=== PATIENT | male | born 1955 | race Caucasian/White ===

== ENCOUNTER → 2017-08-04 | Outpatient (CLI) | payer MEDICARE, OTHER ==
[~2017-08-04] MED LIST: ALBUAER3 INH; ASPI-146 PO; CYCL1PAK PO; CYMB30CA PO; CYMB60CA PO; ENOX40IN SQ; FLUT1INH INH; HYDR-3580 PO; HYDR-3583 PO; IPRA0.02 NEB; LISI-515 PO; MELA5 PO; MULTTAB4 PO; TAMS5CAP PO; TRAZ50TA12 PO; ULTR50TA PO; ZOFR4TAB3 PO
[2017-08-04 10:29] LABS: AUTOMATED NEUTROPHIL # 4.4 TH/MM3 (1.8-7.7); BASOPHIL % 0.2 % (0.0-2.0); EOSINOPHIL # 0.1 TH/MM3 (0-0.4); EOSINOPHIL % 2.1 % (0.0-4.0); HEMATOCRIT 43.5 % (39.0-51.0); HEMO FLAGS DIFF FINAL; LYMPH % 15.3 % (9.0-44.0); LYMPHOCYTE # 0.9 TH/MM3 (1.0-4.8); MEAN CELL VOLUME 92.1 FL (80.0-100.0); MEAN CORPUSCULAR HEMOGLOBIN 31.4 PG (27.0-34.0); MEAN CORPUSCULAR HGB CONC 34.1 % (32.0-36.0); MONO % 6.5 % (0.0-8.0); NEUT % 75.9 % (16.0-70.0); PLATELET COUNT 198 TH/MM3 (150-450); RED BLOOD COUNT 4.73 MIL/MM3 (4.50-5.90); RED CELL DISTRIBUTION WIDTH 12.3 % (11.6-17.2); WHITE BLOOD COUNT 5.8 TH/MM3 (4.0-11.0)
[2017-08-04 10:36] LABS: APTT (PATIENT) 33.1 SEC (24.3-30.1); PROTHROMBIN TIME - PATIENT 11.3 SEC (9.8-11.6)
[2017-08-04 10:51] LABS: ALT (GPT) 24 U/L (12-78); ANION GAP 6 MEQ/L (5-15); AST (GOT) 12 U/L (15-37); BICARBONATE 29.9 MEQ/L (21.0-32.0); BLOOD UREA NITROGEN 14 MG/DL (7-18); CHLORIDE 101 MEQ/L (98-107); GLOMERULAR FILTRATION RATE 77 ML/MIN (>89); GLUCOSE,FASTING 96 MG/DL (74-99); POTASSIUM 4.2 MEQ/L (3.5-5.1); SODIUM (NA) 137 MEQ/L (136-145)
[2017-08-04 10:53] LABS: BLOOD, URINE NEG (NEG); COMMENT (UR) CULT NOT INDICATED; CULTURE IF INDICATED CULT NOT INDICATED; GLUCOSE,URINE NEG (NEG); KETONE, URINE NEG (NEG); NITRITE,URINE NEG (NEG); URINE COLOR YELLOW (YELLW/STRAW)
[2017-08-04 10:53] LABS: ALKALINE PHOSPHATASE 37 U/L (45-117); TOTAL BILIRUBIN ADULT 0.5 MG/DL (0.2-1.0)
[2017-08-04 11:00] LABS: WESTERGREN SEDIMENTATION RATE 3 mm/hr (0-20)
--- NOTE | 2017-08-04 11:36 | RADRPT ---
EXAM DATE/TIME: 08/04/2017 11:25 [facility] COMPARISON: No previous studies available for comparison. INDICATIONS : Evaluate for pneumonia, pneumothorax or communicable disease. Pre op for right hip surgery 08-20-17 MEDICAL HISTORY : Chronic obstructive pulmonary disease. SURGICAL HISTORY : None. ENCOUNTER: Initial ACUITY: 1 day PAIN SCORE: 0/10 LOCATION: Bilateral chest FINDINGS: PA and lateral views of the chest demonstrate the lungs to be symmetrically aerated without evidence of mass, infiltrate or effusion. The lungs are hyperinflated. The cardiomediastinal contours are unr emarkable. Osseous structures are intact. CONCLUSION: Hyperinflation suggesting COPD. No acute infiltrate or effusion. Martín Mitchell Jr., MD on August 04, 2017 at 11:33 Board Certified Radiologist. This report was verified electronically.
== END ==
LOC: CPRE 09:02
PROVIDERS: ATTEND Orthopaedic Surgery
DX: Z01.812 Encounter for preprocedural laboratory examination (principal); Z01.811 Encounter for preprocedural respiratory examination; J44.9 Chronic obstructive pulmonary disease, unspecified; M16.11 Unilateral primary osteoarthritis, right hip; M25.50 Pain in unspecified joint
CPT/HCPCS: 36415; 71020; 80053; 81001; 85025; 85610; 85652; 85730

== ENCOUNTER 2017-08-20 07:17 | Inpatient (IN) | payer MEDICARE, OTHER ==
[~2017-08-20] VITALS: Ht 177.8 cm; Wt 70.6 kg
[~2017-08-20 07:17] MED LIST changes: -ASPI-146 PO; -CYCL1PAK PO; -CYMB30CA PO; -ENOX40IN SQ; -HYDR-3583 PO; -ULTR50TA PO; -ZOFR4TAB3 PO
[2017-08-20] MEDS ORDERED: DEXAMETHASONE SOD PHOS 20 MG/5 ML VIAL IV SCH (08:00)
[2017-08-20] MEDS ORDERED: ceFAZolin 2 GM PREMIX 50 ML IV SCH (08:00)
[2017-08-20] MEDS ORDERED: VANCOMYCIN 1000 MG/NS 250 ML (for <70 kg) IV SCH ×2 (08:00)
[2017-08-20] MEDS ORDERED: CHLORHEXIDINE GLUCONATE 2 % 1 PACK (2 CLOTHS) TOPICAL PRN (08:00)
[2017-08-20] MEDS ORDERED: LACTATED RINGER'S 1000 ML IV PRN (08:00)
[2017-08-20] MEDS ORDERED: POVIDONE IODINE 7.5% SCRUB 118 ML BOTTLE TOPICAL SCH (08:00)
[2017-08-20] MEDS ORDERED: SODIUM CHLORID 0.9% 500 ML IV PRN (08:00)
[2017-08-20] MEDS ORDERED: POVIDONE IODINE 5% (ANTISEPSIS KIT) 4 APPLICATIONS EACH NARE PRN (08:00)
[2017-08-20] MEDS ORDERED: METOPROLOL TARTRATE 25 MG TAB PO PRN (08:00)
[2017-08-20] MEDS ORDERED: GENTAMICIN SULFATE 80 MG/2 ML VIAL ONE (08:31)
[2017-08-20] MEDS ORDERED: EXPAREL PERI-ARTICULAR INJECTION (TOTAL VOL. 60 ML) P-ARTICULR SCH ×2 (09:00)
[2017-08-20] MEDS ORDERED: SODIUM CHLORIDE 0.9% IV SCH ×2 (09:00→14:00)
[2017-08-20] MEDS ORDERED: TRANEXAMIC ACID IV SCH ×2 (09:00→14:00)
--- NOTE | 2017-08-20 12:04 | RADRPT ---
EXAM DATE/TIME: 08/20/2017 10:43 [facility] COMPARISON: No previous studies available for comparison. INDICATIONS : Right anterior hip replacement done in operating room. MEDICAL HISTORY : None. SURGICAL HISTORY : None. ENCOUNTER: Initial ACUITY: 1 day PAIN SCORE: Non-responsive. LOCATION: Right hip. FINDINGS: The patient is status post a total hip arthroplasty with a bipolar prosthesis. Prosthesis is well-sea sneha. Alignment is anatomic. A fracture is not appreciated. CONCLUSION: Anatomic alignment. Hari Hernandez MD FACR Board Certified Radiologist. This report was verified electronically.
--- NOTE | 2017-08-20 12:13 | PD.OP ---
cc: Armani Carrillo MD Operative Report Date of Surgery: Aug 20, 2017 Preoperative Diagnosis: Right hip avascular necrosis, with large labral tear. Postoperative Diagnosis: Same Procedure: Right total hip arthroplasty Anesthesia: Spinal Surgeon: Armani Carrillo Regional Production Manager(s): DINORA Crooks The surgical procedure was assisted by my Advanced Registered Nurse Practitioner. My PATIENT RELATIONS DIRECTOR presence was necessary throughout this case for the manipulation and positioning of the surgical extremity. My PATIENT RELATIONS DIRECTOR was assisting me throughout the duration of this procedure. The skill set of an Advance Registered Nurse Practitioner was medically necessary to complete this procedure. During the surgical case, the surgical assistant was working at the back table and the Advance Registered Nurse Practitioner was directly assisting me. Operation and Findings: IMPLANT DESCRIPTION: 1. [place] Gription Cup, acetabular size 54. 2. [place] AltrX polyethylene, neutral. 4. [place] femoral stem size 11, no collar, standard offset. 5. Femoral head/neck ceramic, 36, +5.0. ESTIMATED BLOOD LOSS: 250 cc. JUSTIFICATION FOR PROCEDURE: The patient has avascular necrosis and a large labral tear of the right hip. There is an attached conservative measures pathway form in the chart that describes the nonoperative measures that were undertaken prior to consideration of surgical management. The patient understood the risks and benefits of surgical management. See my office notes for further details. PROCEDURE: The patient was brought back to the operative theatre. Adequate anesthesia was obtained. The patient received intravenous vancomycin and Ancef. The patient was carefully placed on the operative table. The lower extremity was prepped and draped in the usual sterile fashion. Fluoroscopic images were obtained. We made a standard anterior incision over the hip. We dissected through the TFL fascia, exposing the anterior capsule. Arthrotomy was performed in a T-shaped fashion. The capsule was tagged with a #2 FiberWire. At least moderate osteoarthritis to the hip was noted. Osteotomy was performed through the femoral neck exposing the acetabulum. Labral tear was noted. Remnants of the labrum were resected and osteophytes were removed. We sequentially reamed the acetabulum. We trialed the hip and placed the final cup into position. This was done under fluoroscopic guidance to obtain the appropriate inclination and anteversion. A manhole cover was placed into the acetabular component. We then placed the final polyethylene into position and confirmed that it was well seated. Capsular attachments on the calcar and the inner aspect of the greater trochanter were resected. On the proximal aspect of the femur we used a rongeur , box osteotome, canal finder, sequential broaches and lateralizing rasp. We calcar planed the proximal femur. Then thoroughly irrigated the wound. We trialed the hip with the appropriate size stem. We placed the final stem in to position and trialed again. The hip was stable while it was externally rotated 70 degrees when the leg was lowered to the floor. The final head was applied, and final fluoroscopic images were obtained. The wound was thoroughly irrigated again. Interarticular injection of liposomal bupivacaine was given. The capsule was closed with #2 FiberWire and #1 Vicryl. The deep fascia was closed with a #2 Stratafix, followed by 2-0 Vicryl in the skin and Dermabond dressing. Postop plan is to weight-bear as tolerated. DVT prophylaxis will be performed with SCDtammy, RAYNA briseno, early mobilization, and Lovenox followed by aspirin. Armani Carrillo MD Aug 20, 2017 12:13
[2017-08-20] MEDS ORDERED: ALBUTEROL SULFATE 90 MCG/ACT HFA 8 GM INHALER INH PRN (12:15)
[2017-08-20] MEDS ORDERED: MAGNESIUM HYDROXIDE SUSP 30 ML CUP PO PRN (12:15)
[2017-08-20] MEDS ORDERED: ACETAMINOPHEN/HYDROcodone 325 MG/10 MG TAB PO PRN (12:15)
[2017-08-20] MEDS ORDERED: HYDR-3583 PO (12:15)
[2017-08-20] MEDS ORDERED: ASPI-146 PO (12:15)
[2017-08-20] MEDS ORDERED: Post-op Orders (for Pharmacy) MISC XX ONE (12:15)
[2017-08-20] MEDS ORDERED: BISACODYL 10 MG SUPP RECTAL PRN (12:15)
[2017-08-20] MEDS ORDERED: MORPHINE SULFATE 4 MG/ML INJ IV PUSH PRN (12:15)
[2017-08-20] MEDS ORDERED: ONDANSETRON HCL 4 MG/2 ML VIAL IVP PRN (12:15)
[2017-08-20] MEDS ORDERED: diphenhydrAMINE HCL 50 MG/ML VIAL IV PUSH PRN (12:15)
[2017-08-20] MEDS ORDERED: ENOX40IN SQ (12:15)
[2017-08-20] MEDS ORDERED: NALOXONE HCL 0.4 MG/ML AMP IV PUSH PRN (12:15)
[2017-08-20] MEDS ORDERED: ALUMINUM/MAGNESIUM/SIMETH 30 ML CUP PO PRN (12:15)
[2017-08-20] MEDS ORDERED: DO NOT ADM ANY ANTICOAGULANT DRUGS PRN (12:25)
--- NOTE | 2017-08-20 13:50 | RADRPT ---
EXAM DATE/TIME: 08/20/2017 12:44 [facility] COMPARISON: No previous studies available for comparison. INDICATIONS : Post op right hip surgery MEDICAL HISTORY : None. SURGICAL HISTORY : None. ENCOUNTER: Initial ACUITY: 1 day PAIN SCORE: 10 LOCATION: Left hip and pelvis FINDINGS: Right total hip arthroplasty is present. Hardware is intact. Alignment is anatomic. The adjacent pelv is is unremarkable CONCLUSION: Satisfactory appearance post right ANJU Maxi Becerra MD on August 20, 2017 at 13:13 Board Certified Radiologist. This report was verified electronically.
[2017-08-20] MEDS: SODIUM CHLOR 0.9% 1000 ML INJ 1,000 ML IV SCH (14:00)
--- NOTE | 2017-08-20 14:16 | HHI.DCPOC ---
Discharge Care Plan Diagnosis: (1) Osteoarthritis of right hip (2) Status post total hip replacement, right Your Health Problems Are: Difficulty with ADL Goals to Promote Your Health * To prevent worsening of your condition and complications * To maintain your health at the optimal level Directions to Meet Your Goals Take your medications as prescribed Follow your dietary instruction Follow activity as directed Keep your appointments as scheduled Take your immunizations and boosters as scheduled If your symptoms worsen call your PCP, if no PCP go to Urgent Care Center or Emergency Room Smoking is Dangerous to Your Health. Avoid second hand smoke Call the 24-hour hour crisis hotline for domestic abuse at Jorge Myers Aug 20, 2017 14:16
--- NOTE | 2017-08-20 14:16 | HHI.FF ---
Face to Face Verification Diagnosis: (1) Osteoarthritis of right hip (2) Status post total hip replacement, right Physical Therapy Gait training, Transfer training, bed to chair Hip: Total hip Right LE Weight Bearing: WB as tolerated Right LE Range of Motion: Active ROM Nursing Nursing: Uma matta Dressing Changes: Do not change dressing Additional Instructions First dressing change will be in the office I have seen patient Pako Herrera Jr Gopi on 08/20/17. My clinical findings support the need for the requested home health care services because: Limited ability to care for self High risk of falls I certify that my clinical findings support that this patient is homebound because: Post-op weakness Unsteady gait/balance Jorge Myers Aug 20, 2017 14:16
[2017-08-20] MEDS ORDERED: COMMODE 3-IN-11 MIS (14:19)
[2017-08-20] MEDS ORDERED: WALKER WHEELS/F1 MIS (14:19)
[2017-08-20] MEDS: RESP: IPRATROPIUM 0.5 MG/2.5 ML NEB NEB SCH ×2 (16:00→21:20)
[2017-08-20 16:35] VITALS: BP 132/80; PULSE 63; RESP 18; TEMP 98.3; O2SAT 96
[2017-08-20] MEDS: ACETAMINOPHEN/HYDROcodone 325 MG/10 MG TAB PO PRN ×2 (17:30→22:00)
--- NOTE | 2017-08-20 19:11 | PD.CONS ---
HPI Service [facility] Hospitalists Consult Requested By Dr Carrillo Reason for Consult Medical management. Primary Care Physician Alysha Marie DO Diagnoses: History of Present Illness This is a 61-year-old male with past history of hip osteoarthritis. Hypertension, BPH, COPD, anxiety, chronic back pain who presents to [facility] for an elective total right hip arthroplasty. The patient underwent surgery earlier today. Currently denies any chest pain, shortness of breath, cough, fevers, chills, nausea, vomiting, diarrhea. I am being consulted a Dr. Carrillo for management of medical issues. Review of Systems As per history of present illness, other systems reviewed by me and negative Past Family Social History Allergies: Coded Allergies: No Known Allergies (Unverified Allergy, Unknown, 08/20/17) Past Medical History 1. Hypertension. 2. Anxiety 3. Osteoarthritis. 4. BPH 5 COPD Past Surgical History 1. Tonsillectomy. 2. Nasal septum repair 2. 3. Right shoulder reconstructive surgery. 4. Pilonidal cyst extraction. Reported Medications Reported Meds & Active Scripts Active Enoxaparin Inj (Enoxaparin Sodium) 40 Mg/0.4 Ml Syr 40 Mg SQ DAILY Start Aspirin after Lovenox is completed. Ecotrin Regular Strength (Aspirin) 325 Mg Tabdr 325 Mg PO DAILY Start Aspirin after Lovenox is completed. Hydrocodone-Acetaminophen 10-325 mg Tab 1-2 Tab PO Q4H PRN Reported Trazodone (Trazodone HCl) 50 Mg Tab 50 Mg PO HS Proair Hfa 8.5 GM Inh (Albuterol Sulfate) 90 Mcg/Act Aer 2 Puff INH Q4-6H PRN 108 mcg/actuation Ipratropium Neb (Ipratropium [place]) 0.5 Mg/2.5 Ml Amp 0.5 Mg NEB Q6HR NEB Breo Ellipta Inh (Fluticasone/Vilanterol) 100-25 Mcg/Act Inh 1 Puff INH DAILY Use daily at the same time. Flomax (Tamsulosin HCl) 0.4 Mg Cap 0.4 Mg PO HS Lisinopril 20 Mg Tab 20 Mg PO DAILY Cymbalta DR (Duloxetine HCl) 60 Mg Capdr 60 Mg PO DAILY Hydrocodone-Acetamin 7.5-325 (Hydrocodone/Acetaminophen) 7.5 Mg-325 Mg Tablet 1 Tab PO DIRECTED PRN Melatonin 5 Mg Tab 1 Mg PO HS Multi Vitamin Mens (Multiple Vitamin) 1 Tab Tab 1 Tab PO DAILY Active Ordered Medications Current Medications Medications (Trade) Dose Ordered Sig/Britni Route Start Time Stop Time Status Last Admin Lactated Ringer's 1,000 ml @ 30 mls/hr Q24H PRN IV 08/20/17 08:00 08/23/17 07:59 08/20/17 08:00 Sodium Chloride 500 ml @ 30 mls/hr [id number] PRN IV 08/20/17 08:00 08/23/17 07:59 (Lopressor) 25 mg SCHOOL [employer]GE [employer] ASSOCIATE PRN PO 08/20/17 08:00 08/23/17 07:59 (Betadine 5% Antisepsis Kit) 1 applic [employer]CHO[employer]GE [employer] ASSOCIATE PRN EACH NARE 08/20/17 08:00 08/23/17 07:59 08/20/17 08:13 (Chlorhexidine 2% Cloth) 3 pack S[employer]OL [employer]GE [employer]GRAM ASSOCIATE PRN TOPICAL 08/20/17 08:00 08/23/17 07:59 08/20/17 07:30 (Betadine 7.5% Scrub) 1 applic ONCE TOPICAL 08/20/17 08:00 08/23/17 07:59 Cefazolin Sodium/ Dextrose 50 ml @ 100 mls/hr [employer] ASSOCIATE IV 08/20/17 08:00 08/23/17 07:59 08/20/17 10:08 Vancomycin HCl 1000 mg/Sodium Chloride 250 ml @ 250 mls/hr S[employer] ASSOCIATE IV 08/20/17 08:00 08/23/17 07:59 08/20/17 10:08 (Decadron Inj) 10 mg S[employer] ASSOCIATE IV 08/20/17 08:00 08/20/17 23:59 08/20/17 08:12 (Proair Hfa Inh) 2 puff BID PRN INH 08/20/17 12:15 (Cymbalta Dr) 60 mg DAILY PO 08/21/17 09:00 (Breo Ellipta 100-25 Inh) 1 puff DAILY INH 08/21/17 09:00 (Atrovent Neb) 0.5 mg Q6HR NEB NEB 08/20/17 16:00 (Prinivil) 20 mg DAILY PO 08/21/17 09:00 (Flomax) 0.4 mg HS PO 08/20/17 21:00 (Desyrel) 50 mg HS PO 08/20/17 21:00 Sodium Chloride 1,000 ml @ 100 mls/hr Q10H IV 08/20/17 14:00 08/20/17 14:00 Cefazolin Sodium 1000 mg/Sodium Chloride 100 ml @ 200 mls/hr Q6H IV 08/20/17 16:00 08/21/17 04:29 08/20/17 16:00 (Decadron Inj) 10 mg ONCE ONCE IV 08/21/17 07:45 08/21/17 07:46 (Lovenox Inj) 40 mg Q24H SQ 08/21/17 11:30 08/30/17 11:31 ([place] 10-325 Mg) 1 tab Q4H PRN PO 08/20/17 12:15 08/20/17 17:30 ([place] 10-325 Mg) 2 tab Q6H PRN PO 08/20/17 12:15 Tranexamic Acid 676 mg/Sodium Chloride 106.76 ml @ 200 mls/ hr UNSCH IV 08/20/17 14:00 08/20/17 20:00 08/20/17 14:43 (Theragran M Tab) 1 tab BID PO 08/21/17 21:00 10/20/17 20:59 (Zofran Inj) 4 mg Q6H PRN IVP 08/20/17 12:15 (Colace) 100 mg BID PO 08/21/17 21:00 (Mag-Al Plus Susp Liq) 30 ml Q6H PRN PO 08/20/17 12:15 (Ambien) 5 mg HS PRN PO 08/20/17 21:00 (Dulcolax Supp) 10 mg DAILY PRN RECTAL 08/20/17 12:15 (Milk Of Magnesia Liq) 30 ml DAILY PRN PO 08/20/17 12:15 (Narcan Inj) 0.4 mg UNSCH PRN IV PUSH 08/20/17 12:15 (Benadryl Inj) 25 mg Q6H PRN IV PUSH 08/20/17 12:15 (Morphine Inj) 2 mg Q3H PRN IV PUSH 08/20/17 12:15 08/20/17 16:05 Miscellaneous Information ALL NURSING DEPARTME... UNSCH PRN .XX 08/20/17 12:25 08/21/17 12:24 Family History And as family history of cancer. Patient father had an CO and patient's mother suffered from problems with anxiety. Social History Patient states he currently smokes half pack per day. 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 The patient smokes marijuana occasionally. The patient has 2 children and is currently . Physical Exam Vital Signs Vital Signs Date Time Temp Pulse Resp B/P (MAP) Pulse Ox O2 Delivery O2 Flow Rate FiO2 08/20/17 16:35 98.3 63 18 132/80 (97) 96 08/20/17 12:30 98.0 69 18 99/55 (70) 99 Simple Mask 8 08/20/17 08:02 97.9 68 16 133/76 (95) 98 Physical Exam GENERAL: This is a well-nourished, well-developed patient, in no apparent distress. SKIN: No rashes, ecchymoses or lesions. Cool and dry. HEAD: Atraumatic. Normocephalic. No temporal or scalp tenderness. EYES: Pupils equal round and reactive. Extraocular motions intact. No scleral icterus. No injection or drainage. ENT: Nose without bleeding, purulent drainage or septal hematoma. Throat without erythema, tonsillar hypertrophy or exudate. Uvula midline. Airway patent. NECK: Trachea midline. No JVD or lymphadenopathy. Supple, nontender, no meningeal signs. CARDIOVASCULAR: Regular rate and rhythm without murmurs, gallops, or rubs. RESPIRATORY: Clear to auscultation. Breath sounds equal bilaterally. No wheezes , rales, or rhonchi. GASTROINTESTINAL: Abdomen soft, non-tender, nondistended. No hepato-splenomegaly , or palpable masses. No guarding. MUSCULOSKELETAL: Extremities without clubbing, cyanosis, there is mild edema and tenderness in the right hip, surgical incision is covered by dressing which is C/D/I. . No calf tenderness. Negative Homans sign bilaterally. Patient has intact bilateral pedal pulses. NEUROLOGICAL: Awake and alert. Cranial nerves II through XII intact. Motor and sensory grossly within normal limits. Five out of 5 muscle strength in all muscle groups. Normal speech. Imaging Last Impressions Hip and Pelvis X-Ray 08/20/17 1207 Signed Impressions: Service Date/Time: Sunday, August 20, 2017 12:44 - CONCLUSION: Satisfactory appearance post right ANJU Maxi Becerra MD Hip X-Ray 08/20/17 0000 Signed Impressions: Service Date/Time: Sunday, August 20, 2017 10:43 - CONCLUSION: Anatomic alignment. Hair Hernandez MD Assessment and Plan Problem List: (1) Osteoarthritis of right hip ICD Code: M16.11 - Unilateral primary osteoarthritis, right hip Plan: Management as per orthopedic surgery sp right hip total arthroplasty. Pain control as per orthopedic surgery recommendations. Patient currently on [place] and IV morphine for breakthrough pain. PT eval. The patient will need home health physical therapy as per PT recommendations. (2) Status post total hip replacement, right ICD Code: Z96.641 - Presence of right artificial hip joint Plan: As above. (3) HTN (hypertension) ICD Code: I10 - Essential (primary) hypertension Plan: Symptoms stable. Continue lisinopril 20 mg by mouth daily. (4) BPH (benign prostatic hyperplasia) ICD Code: N40.0 - Benign prostatic hyperplasia without lower urinary tract symptoms Plan: Continue Flomax. (5) Anxiety ICD Code: F41.9 - Anxiety disorder, unspecified Plan: Seems to be stable at this time. Continue trazodone, duloxetine (6) COPD (chronic obstructive pulmonary disease) ICD Code: J44.9 - Chronic obstructive pulmonary disease, unspecified Plan: Seems stable. Continue home medications which include Breo Ellipta inhaler, albuterol inhaler. Will add DuoNeb's as needed. Supplemental oxygen as needed keep oxygen saturation more than 92%. Assessment and Plan DVT prophylaxis: SCDs, Lovenox 40 mg subcutaneous every 24 hours. GI prophylaxis: Continue Zofran as needed for nausea, continue bowel regimen to prevent constipation. Code Status Full code Discussed Condition With Patient, RN. Problem Qualifiers (1) Osteoarthritis of right hip: Qualified Codes: M16.11 - Unilateral primary osteoarthritis, right hip (2) HTN (hypertension): Qualified Codes: I10 - Essential (primary) hypertension (3) BPH (benign prostatic hyperplasia): Qualified Codes: N40.0 - Benign prostatic hyperplasia without lower urinary tract symptoms (4) COPD (chronic obstructive pulmonary disease): Qualified Codes: J44.9 - Chronic obstructive pulmonary disease, unspecified Arrington Brandon,Peter MD Aug 20, 2017 19:11
[2017-08-20 20:00] VITALS: BP 127/61; PULSE 76; RESP 20; TEMP 96.1; O2SAT 97
[2017-08-20] MEDS: NICOTINE 21 MG/24 HR PATCH T-DERMAL SCH (20:00)
[2017-08-20] MEDS ORDERED: traZODone HCL 50 MG TAB PO SCH (21:00)
[2017-08-20] MEDS ORDERED: ZOLPIDEM TARTRATE 5 MG TAB PO PRN (21:00)
[2017-08-20] MEDS ORDERED: REMOVE OLD PATCH T-DERMAL SCH (21:00)
[2017-08-20] MEDS ORDERED: TAMSULOSIN HCL 0.4 MG CAP PO SCH (21:00)
[2017-08-20 21:24] VITALS: O2SAT 99
[2017-08-21] VITALS: BP 109/56; PULSE 67; RESP 16; TEMP 95.9; O2SAT 95
[2017-08-21] MEDS: RESP: IPRATROPIUM 0.5 MG/2.5 ML NEB NEB SCH ×2 (03:48→12:04)
[2017-08-21 04:00] VITALS: BP 122/56; PULSE 72; RESP 16; TEMP 96.7; O2SAT 95
[2017-08-21] MEDS: ACETAMINOPHEN/HYDROcodone 325 MG/10 MG TAB PO PRN ×3 (05:25→13:13)
[2017-08-21 06:54] LABS: HEMATOCRIT 33.5 % (39.0-51.0); MEAN CELL VOLUME 90.6 FL (80.0-100.0); MEAN CORPUSCULAR HEMOGLOBIN 31.7 PG (27.0-34.0); MEAN CORPUSCULAR HGB CONC 34.9 % (32.0-36.0); PLATELET COUNT 175 TH/MM3 (150-450); RED BLOOD COUNT 3.69 MIL/MM3 (4.50-5.90); RED CELL DISTRIBUTION WIDTH 12.1 % (11.6-17.2); REVIEW FLAG FINAL; WHITE BLOOD COUNT 10.8 TH/MM3 (4.0-11.0)
[2017-08-21 07:20] LABS: ANION GAP 8 MEQ/L (5-15); AST (GOT) 17 U/L (15-37); BICARBONATE 26.7 MEQ/L (21.0-32.0); BLOOD UREA NITROGEN 16 MG/DL (7-18); CHLORIDE 108 MEQ/L (98-107); GLOMERULAR FILTRATION RATE 84 ML/MIN (>89); POTASSIUM 3.8 MEQ/L (3.5-5.1); SODIUM (NA) 143 MEQ/L (136-145)
[2017-08-21 07:21] LABS: ALT (GPT) 17 U/L (12-78)
[2017-08-21 07:23] LABS: ALKALINE PHOSPHATASE 40 U/L (45-117); TOTAL BILIRUBIN ADULT 0.3 MG/DL (0.2-1.0)
[2017-08-21] MEDS ORDERED: DEXAMETHASONE SOD PHOS 20 MG/5 ML VIAL IV ONE (07:45)
[2017-08-21 08:00] VITALS: BP 116/69; PULSE 70; RESP 18; TEMP 97.8; O2SAT 95
[2017-08-21] MEDS ORDERED: LISINOPRIL 20 MG TAB PO SCH (09:00)
[2017-08-21] MEDS ORDERED: FLUTICASONE 100 MCG/VILANTEROL 25 MCG INHALER INH SCH (09:00)
[2017-08-21] MEDS ORDERED: DULoxetine HCl DR 60 MG CAP PO SCH (09:00)
[2017-08-21] MEDS: NICOTINE 21 MG/24 HR PATCH T-DERMAL SCH (09:00)
[2017-08-21] MEDS: SODIUM CHLOR 0.9% 1000 ML INJ 1,000 ML IV SCH ×2 (10:00)
[2017-08-21] MEDS ORDERED: ENOXAPARIN SODIUM 40 MG/0.4 ML SYRINGE SQ SCH (11:30)
[2017-08-21 12:00] VITALS: BP 141/69; PULSE 63; RESP 18; TEMP 98.1; O2SAT 95
[2017-08-21 12:08] VITALS: O2SAT 98
--- NOTE | 2017-08-21 13:01 | PD.ORT.PN ---
Subjective Post Op Day #: 1 Subjective Remarks Patient is OOB in chair eating lunch. Patient reports minimal pain. Patient states he is ready for discharge home with home health. Objective Vitals Vital Signs Date Time Temp Pulse Resp B/P (MAP) Pulse Ox O2 Delivery O2 Flow Rate FiO2 08/21/17 12:08 98 21 08/21/17 08:00 97.8 70 18 116/69 (85) 95 08/21/17 04:00 96.7 72 16 122/56 (78) 95 08/21/17 00:00 95.9 67 16 109/56 (73) 95 08/20/17 21:24 99 08/20/17 20:00 96.1 76 20 127/61 (83) 97 08/20/17 16:35 98.3 63 18 132/80 (97) 96 08/20/17 16:25 66 18 141/73 (95) 93 Room Air 08/20/17 16:00 63 18 144/74 (97) 95 Room Air 08/20/17 15:45 64 18 139/72 (94) 95 Room Air 08/20/17 15:30 60 18 138/75 (96) 94 Room Air 08/20/17 15:15 61 18 136/78 (97) 94 Room Air 08/20/17 15:00 60 18 130/77 (94) 94 Room Air 08/20/17 14:45 60 18 132/73 (92) 94 Room Air 08/20/17 14:30 57 18 121/68 (85) 93 Room Air 08/20/17 14:15 64 18 120/67 (84) 94 Room Air 08/20/17 14:00 58 18 113/62 (79) 95 Room Air 08/20/17 13:45 57 18 117/62 (80) 96 Room Air 08/20/17 13:30 58 18 114/60 (78) 96 Room Air 08/20/17 13:15 60 18 110/55 (73) 96 Nasal Cannula 2 08/20/17 13:00 60 18 121/56 (77) 95 Nasal Cannula 2 I/O 08/20/17 08/20/17 08/20/17 08/21/17 08/21/17 08/21/17 07:00 15:00 23:00 07:00 15:00 23:00 Intake Total 1200 ml 706.76 ml 25 ml Output Total 250 ml Balance 950 ml 706.76 ml 25 ml Intake Oral 600 ml 25 ml IV Total 1200 ml 106.76 ml Output Estimated Blood Loss 250 ml # Voids 2 1 # Bowel Movements 0 0 1 Result Diagram: 08/21/17 0551 08/21/17 0531 Procedures Right ANJU Objective Remarks The patient's dressing is C/D/I. EHL/TA/G intact. 2+ pedal pulse. Calf is soft and nontender. + SILT. Assessment & Plan Ortho Post Op Day #: 1 Problem List: Assessment and Plan POD #1: Right ANJU 1. WBAT RLE 2. Lovenox followed by ASA for DVT prophylaxis 3. Ice to the right hip PRN 4. Plan is for discharge home with home health today. 5. Patient will f/u with Dr. Carrillo or DINORA Bradford as previously scheduled. 6. We will continue to follow pathology report on femoral head. Jorge Myers Aug 21, 2017 13:01
[2017-08-21] MEDS ORDERED: DOCUSATE SODIUM 100 MG CAP PO SCH (21:00)
[2017-08-21] MEDS ORDERED: MULTIVITAMINS/MINERALS THERAPEUTIC TAB PO SCH (21:00)
--- NOTE | 2017-08-22 16:56 | HHI.DS ---
Discharge Summary Admission Date Aug 20, 2017 at 07:17 Discharge Date: Aug 21, 2017 Admitting Diagnosis OA of the right hip Status post total hip replacement, Right Diagnosis: (1) Status post total hip replacement, right Diagnosis: Principal ICD Codes: Z96.641 - Presence of right artificial hip joint (2) Osteoarthritis of right hip Diagnosis: Principal ICD Codes: M16.11 - Unilateral primary osteoarthritis, right hip Procedures Right ANJU Brief History This is a 61 year old male patient with severe OA of the right hip CBC/BMP: 08/21/17 0551 08/21/17 0531 Significant Findings Laboratory Tests Test 08/21/17 05:31 08/21/17 05:51 Random Glucose 133 MG/DL (74-106) Total Protein 5.7 GM/DL (6.4-8.2) Albumin 3.1 GM/DL (3.4-5.0) Calcium Level 8.0 MG/DL (8.5-10.1) Alkaline Phosphatase 40 U/L (45-117) Chloride Level 108 MEQ/L (98-107) Estimat Glomerular Filtration Rate 84 ML/MIN (>89) Red Blood Count 3.69 MIL/MM3 (4.50-5.90) Hemoglobin 11.7 GM/DL (13.0-17.0) Hematocrit 33.5 % (39.0-51.0) PE at Discharge The patient's dressing is C/D/I. EHL/TA/G intact. 2+ pedal pulse. Calf is soft and nontender. + SILT. Hospital Course The patient was admitted to the hospital for severe OA of the right hip. The patient had a right ANJU. The patient's surgery went well without complication. The patient is WBAT. The patient is on a regular diet. The patient was placed on Lovenox followed by ASA for DVT prophylaxis. The patient was discharged home with home health and will f/u in the office with Dr. Carrillo or DINORA Bradford as previously scheduled. Pt Condition on Discharge: Stable Discharge Disposition: Disch w/ Home Health Serv Discharge Instructions Diet Instructions: As Tolerated, No Restrictions Activities You Can Perform: Weight Bearing as Sofie Activities to Avoid: Strenuous Activity Follow up Referrals: Orthopedics with Armani Carrillo MD New Medications: Aspirin (Ecotrin Regular Strength) 325 Mg Tabdr 325 MG PO DAILY for Prevent Blood Clot, #30 TAB 0 Refills Start Aspirin after Lovenox is completed. Commode 3-in-1 (Commode 3-in-1) 1 Mis Mis EA .ROUTE DIRECTED, #1 0 Refills Enoxaparin Inj (Enoxaparin Inj) 40 Mg/0.4 Ml Syr 40 MG SQ DAILY for Blood Clot Prevention, #10 SYRINGE 0 Refills Start Aspirin after Lovenox is completed. Hydrocodone-Acetaminophen (Hydrocodone-Acetaminophen) 10-325 mg Tab 1-2 TAB PO Q4H PRN for PAIN, #60 TAB 0 Refills Walker with Front Wheels (Walker with Front Wheels) 1 Mis Mis EA .ROUTE DIRECTED, #1 0 Refills Continued Medications: Albuterol 8.5 GM Inh (Proair Hfa 8.5 GM Inh) 90 Mcg/Act Aer 2 PUFF INH Q4-6H PRN for SHORTNESS OF BREATH, #1 INHALER 0 Refills 108 mcg/actuation Duloxetine DR (Cymbalta DR) 60 Mg Capdr 60 MG PO DAILY, #30 CAP 0 Refills Fluticasone-Vilanterol Inh (Breo Ellipta Inh) 100-25 Mcg/Act Inh 1 PUFF INH DAILY, #1 INHALER 0 Refills Use daily at the same time. Ipratropium Neb (Ipratropium Neb) 0.5 Mg/2.5 Ml Amp 0.5 MG NEB Q6HR NEB for Breathing Treatment, NEBULE 0 Refills Lisinopril (Lisinopril) 20 Mg Tab 20 MG PO DAILY, #30 TAB 0 Refills Melatonin (Melatonin) 5 Mg Tab 1 MG PO HS for Provide Good Sleep, TAB 0 Refills Multiple Vitamin (Multi Vitamin Mens) 1 Tab Tab 1 TAB PO DAILY Tamsulosin (Flomax) 0.4 Mg Cap 0.4 MG PO HS for Manage Prostate Problems, #30 CAP 0 Refills Trazodone (Trazodone) 50 Mg Tab 50 MG PO HS for Control Depression, #30 TAB 0 Refills Discontinued Medications: Hydrocodone/Acetaminophen (Hydrocodone-Acetamin 7.5-325) 7.5 Mg-325 Mg Tablet 1 TAB PO DIRECTED PRN for PAIN SCALE 1 TO 10 Jorge Myers Aug 22, 2017 16:56
== END 2017-08-21 15:46 | disposition home health service (06) | DRG 470 ==
LOC: HSDI 07:17 → N06B 16:35
PROVIDERS: ADMIT Orthopaedic Surgery; ATTEND Orthopaedic Surgery
PROC: 0SR9049 Replacement of Right Hip Joint with Ceramic on Polyethylene Synthetic Substitute, Cemented, Open Approach (ICD-10-PCS; principal; 2017-08-20 10:11)
DX: M16.11 Unilateral primary osteoarthritis, right hip (principal); M87.851 Other osteonecrosis, right femur; I10 Essential (primary) hypertension; S73.191A Other sprain of right hip, initial encounter; J44.9 Chronic obstructive pulmonary disease, unspecified; M25.751 Osteophyte, right hip; N40.0 Benign prostatic hyperplasia without lower urinary tract symptoms; M54.9 Dorsalgia, unspecified; E78.5 Hyperlipidemia, unspecified; F12.90 Cannabis use, unspecified, uncomplicated; F17.210 Nicotine dependence, cigarettes, uncomplicated; F41.9 Anxiety disorder, unspecified; F32.9 Major depressive disorder, single episode, unspecified; Z85.3 Personal history of malignant neoplasm of breast; Z92.21 Personal history of antineoplastic chemotherapy
CPT/HCPCS: 73502; 76000; 80053; 85027; 86850; 86900; 86901; 88304; 88311; 94150; 94640; C1776; C9290; J0690; J1100; J1580; J1650; J2270; J3370; J7030; J7050; J7120; J7644